=== PATIENT | female | born 1955 | race Caucasian/White ===

== ENCOUNTER 2020-08-24 10:15 | Emergency (ER) | payer BC, MEDICARE ==
[2020-08-24] MEDS ORDERED: Albuterol 200 PUFF (6.7GM INHALER) ONE ×2 (11:33→11:47)
[2020-08-24 11:41] LABS: #Lymphocytes 0.9 thou/uL (1.20-3.40); #Monocytes 0.5 thou/uL (0.11-0.59); #Neutrophils 6.4 thou/uL (1.40-6.50); %Basophils 0.2 % (0.0-1.0); %Eosinophils 0.1 % (0.0-10.0); %Lymphocytes 11.2 % (21.0-51.0); %Monocytes 5.9 % (0.0-10.0); %Neutrophils 82.7 % (42.0-75.0); Hemoglobin 16.8 g/dL (12.0-16.0); Mean Corpuscular HGB CONC 32.5 g/dL (32.0-36.0); Mean Corpuscular Hemoglobin 28.4 pg (27.0-31.0); Mean Corpuscular Volume 87.2 fL (78.0-98.0); Mean Platelet Volume 6.3 fL (7.4-10.4); Platelet Count 163 thou/uL (130-400); RBC Distribution Width 11.9 % (11.5-14.5); Red Blood Cell (RBC) Count 5.91 mill/uL (4.20-5.40); White Blood Cell (WBC) Count 7.7 thou/uL (4.8-10.8)
[2020-08-24 12:02] LABS: ALT (SGPT) 29 U/L (8-55); AST (SGOT) 21 U/L (5-34); Albumin 3.8 g/dL (3.4-4.8); Alkaline Phosphatase 51 U/L (40-110); Anion Gap 19 mmol/L (10-20); BUN (Urea Nitrogen) 15 mg/dL (9.8-20.1); Bilirubin, Total 0.6 mg/dL (0.2-1.2); Calc. Creatinine Clearance 0 mL/min (70-130); Calcium 8.7 mg/dL (7.8-10.44); Carbon Dioxide 20 mmol/L (23-31); Chloride 101 mmol/L (98-107); Globulin 3.2 g/dL (2.4-3.5); Glucose 190 mg/dL (80-115); Potassium 3.7 mmol/L (3.5-5.1); Sodium 136 mmol/L (136-145)
--- NOTE | 2020-08-24 15:29 | RAD ---
PORTABLE CHEST: Date: 08/24/2020 An AP portable film at 1140 hours was compared with an 05/29/2019 study. The depth of inspiration is not great, but there is generalized prominence of lung markings. There ar e at least one or two areas in the left mid lung zone that appear to be vague patchy infiltrates. The re may be more on the right side. There might be a little fluid in the minor fissure. The heart is no rmal in size given an AP projection, body habitus, and depth of inspiration. IMPRESSION: Generalized prominence of lung markings with a few more patchy areas seen in the lungs. The findings are thought to be more likely due to infection than congestion. See CT report to follow. POS: HOME
--- NOTE | 2020-08-24 15:40 | CT ---
CT OF THE CHEST WITHOUT CONTRAST: 08/24/[address] of the chest was done in this patient with dyspnea and an abnormal chest x-ray. There are multiple patchy ground glass infiltrates spread throughout the lungs bilaterally. The findi ngs are worst in the upper lobes and a small amount in the right middle lobe. There are some more ofelia ear lower lobe changes, especially right lower lobe. There are no large effusions. No mediastinal mas s or significant adenopathy was seen within the limitations of this noncontrast study. Some faint satnam cifications are seen in the aortic arch. No pericardial effusion was seen. Scans into the upper abdom en showed no acute changes in the areas visualized. IMPRESSION: Multiple patchy ground glass infiltrates throughout the lungs as described above. An infectious etiol ogy, including COVID is presumed until proven otherwise. Findings discussed with Dr. Mancuso at 1439 on 08/24/20. POS: HOME
[2020-08-24] MEDS ORDERED: Cefepime 2 GM VIAL ONE (16:36)
[2020-08-24] MEDS ORDERED: Dexamethasone 4 mg/ml Vial ONE (16:44)
== END 2020-08-24 18:17 | disposition short-term general hospital (02) ==
LOC: BURERS 10:15
DX: U07.1 COVID-19 (principal); J12.89 Other viral pneumonia; I10 Essential (primary) hypertension; E11.9 Type 2 diabetes mellitus without complications; E78.5 Hyperlipidemia, unspecified
CPT/HCPCS: 36415; 71045; 71250; 80053; 83605; 84484; 85025; 87040; 93005; 96365; 96375; J0692; J1100; J1956